=== PATIENT | female | born 1995 | race Caucasian/White ===

== ENCOUNTER 2017-12-10 10:25 | Emergency (ER) | payer BC ==
--- NOTE | 2017-12-10 10:31 | EDM.PDOC ---
ED HPI GENERAL MEDICAL PROBLEM - General Chief Complaint: Fever Stated Complaint: BODYACHES AND FEVER Time Seen by Provider: 12/10/17 10:29 Source of Information: Reports: Patient History Limitations: Reports: No Limitations - History of Present Illness INITIAL COMMENTS - FREE TEXT/NARRATIVE: HISTORY AND PHYSICAL: History of present illness: Patient is a 22-year-old female who presents to the emergency room today with complaints of cough, fever, sore throat 4 days. She states that the symptoms have progressively gotten worse and the ujzy-lnn-sagmres medications are not helping.. She denies any abdominal pain, chest pain, shortness of breath, nausea, vomiting , or diarrhea. Has no urinary or bowel complaints or concerns. Has not received the [id number] influenza vaccine. Patient denies any chance of as she has an IUD. Review of systems: As per history of present illness and below otherwise all systems reviewed and negative. Past medical history: As per history of present illness and as reviewed below otherwise noncontributory. Surgical history: As per history of present illness and as reviewed below otherwise noncontributory. Social history: No reported history of drug or alcohol abuse. Family history: As per history of present illness and as reviewed below otherwise noncontributory. Physical exam: General: Well-developed and well-nourished 22-year-old female. Alert and oriented. Nontoxic appearing and in no acute distress. HEENT: Atraumatic, normocephalic, pupils reactive, negative for conjunctival pallor or scleral icterus, mucous membranes moist, mild erythema noted to the posterior pharynx without exudate -cobble stoning noted, neck supple, no lymphadenopathy, nontender, trachea midline. No meningeal sign, drooling or trismus. Lungs: Clear to auscultation, breath sounds equal bilaterally, chest nontender. Heart: S1S2, regular rate and rhythm Abdomen: Soft, nondistended, nontender. Negative for masses or hepatosplenomegaly. Negative for costovertebral tenderness. Pelvis: Stable nontender. Genitourinary: Deferred. Rectal: Deferred. Extremities: Atraumatic, negative for cords or calf pain. Neurovascular unremarkable. Neuro: Awake, alert, oriented. Cranial nerves II through XII unremarkable. Cerebellum unremarkable. Motor and sensory unremarkable throughout. Exam nonfocal. Chest x-ray shows no evidence of infiltrate or pneumonia. Influenza screen is positive for influenza A. this was shared with the patient. Patient does complain of severe throat pain and cough regardless of using [id number]-[id number] products. We'll give her Phenergan with codeine for nighttime use. We discussed supportive care measures for home. Discussed intact precaution as this is contagious. She voices understanding and is agreeable to plan of care. Diagnostics: Influenza screen, strep screen, chest x-ray Therapeutics: [] Impression: #1 Influenza A Plan: 1. Phenergan with codeine has been given to you for your cough. This may cause drowsiness so do not take it while driving or needing to be functioning at work/ school. Tylenol and/or ibuprofen as needed [id number] for pain and fever management. Drink plenty of fluids to prevent dehydration. Rest. 2. Please avoid her to sit patient in work or school until you are fever free for 24 hours. Please keep in mind contamination precautions. 3. Follow-up with your primary caregiver in the next couple days. Return to the ED as needed and as we discussed. Definitive disposition and diagnosis as appropriate pending reevaluation and review of above. Duration: Day(s): Location: Reports: Neck, Chest Chest Pain Score (Numeric/FACES): 9 - Related Data Allergies Allergy/AdvReac Type Severity Reaction Status Date / Time amoxicillin Allergy Hives Verified 12/10/17 10:42 Home Meds: Home Meds FLUoxetine HCl [Prozac] 20 mg PO 12/10/17 [History] ED ROS GENERAL - Review of Systems Review Of Systems: ROS reveals no pertinent complaints other than HPI. ED EXAM, GENERAL - Physical Exam Exam: See Below (See dictation) Course - Vital Signs Last Recorded V/S: Last Vital Signs Temp 98.1 F 12/10/17 10:39 Pulse 95 12/10/17 10:39 Resp 18 12/10/17 10:39 BP 117/84 12/10/17 10:39 Pulse Ox 97 12/10/17 10:39 - Orders/Labs/Meds Orders: Active Orders 24 hr Category Date Time Status Chest 2V [CR] Stat Exams 12/10/17 10:40 Taken STREP SCRN A RAPID W CULT CONF [RM] Stat Lab 12/10/17 10:40 Uncollected Departure - Departure Time of Disposition: 11:24 Disposition: Home, Self-Care 01 Clinical Impression: Influenza A - Discharge Information Referrals: PCP,None [Primary Care Provider] - Forms: ED Department Discharge Additional Instructions: My general discharge The following information is given to patients seen in the emergency department who are being discharged to home. This information is to outline your options for follow-up care. We provide all patients seen in our emergency department with a follow-up referral. The need for follow-up, as well as the timing and circumstances, are variable depending upon the specifics of your emergency department visit. If you don't have a primary care physician on staff, we will provide you with a referral. We always advise you to contact your personal physician following an emergency department visit to inform them of the circumstance of the visit and for follow-up with them and/or the need for any referrals to a consulting specialist. The emergency department will also refer you to a specialist when appropriate. This referral assures that you have the opportunity for follow-up care with a specialist. All of these measure are taken in an effort to provide you with optimal care, which includes your follow-up. Under all circumstances we always encourage you to contact your private physician who remains a resource for coordinating your care. When calling for follow-up care, please make the office aware that this follow-up is from your recent emergency room visit. If for any reason you are refused follow-up, please contact the [facility] at and asked to speak to the emergency department charge nurse. [facility] [address] [place] [id number] 1. Phenergan with codeine has been given to you for your cough. This may cause drowsiness so do not take it while driving or needing to be functioning at work/ school. Tylenol and/or ibuprofen as needed [id number] for pain and fever management. Drink plenty of fluids to prevent dehydration. Rest. 2. Please avoid her to sit patient in work or school until you are fever free for 24 hours. Please keep in mind contamination precautions. 3. Follow-up with your primary caregiver in the next couple days. Return to the ED as needed and as we discussed. - My Orders Last 24 Hours: My Active Orders 12/10/17 10:40 Chest 2V [CR] Stat STREP SCRN A RAPID W CULT CONF [RM] Stat - Assessment/Plan Last 24 Hours: My Active Orders 12/10/17 10:40 Chest 2V [CR] Stat STREP SCRN A RAPID W CULT CONF [RM] Stat
--- NOTE | 2017-12-12 14:07 | CR ---
EXAM DATE: 12/10/17 PATIENT'S AGE: 22 Patient: JOLIE SWEENEY Facility: [place], [place] Site . Site : [id number] Study: XRay Chest [id number]/27/2018 10:58:49 AM Ordering Physician: Doctor Babcock Final Report: INDICATION: Cough and fever. TECHNIQUE: PA and lateral chest x-ray. FINDINGS: Heart size normal. Lungs clear without infiltrate or consolidation. Chest otherwise negative. Dictated by Arthur Ortiz MD @ Dec 10 2017 11:23AM (Electronic Signature) Report Signed by Proxy. [facility]ITAL[facility]ishnu
== END 2017-12-10 11:35 | disposition home or self-care (01) ==
LOC: MW.ED 10:25
DX: J10.1 Influenza due to other identified influenza virus with other respiratory manifestations (principal); Z88.1 Allergy status to other antibiotic agents
CPT/HCPCS: 71046; 71046-26; 87804; 99283